=== PATIENT | female | born 1965 | race Caucasian/White ===

== ENCOUNTER 2017-01-04 23:49 | Emergency (ER) | payer OTHER ==
[~2017-01-04] VITALS: Ht 160 cm; Wt 91.7 kg
[2017-01-05 00:33] LABS: HEMATOCRIT 43.8 % (36.0-46.0); MCH 32.8 PG (29.0-34.0); MCHC 35.6 G/DL (30.0-36.0); PLATELET COUNT 265 K/uL (156-360); RBC DIS.WIDTH-CV 12.1 % (11.8-14.6); RBC DIS.WIDTH-SD 40.8 % (39-53); RED BLOOD COUNT 4.76 M/uL (3.80-5.20); WHITE BLOOD COUNT 16.9 K/uL (4.1-10.2)
[2017-01-05 00:37] LABS: CHLORIDE 103 mEq/L (99-109); POTASSIUM 3.6 mEq/L (3.7-5.4); SODIUM 136 mEq/L (136-147)
[2017-01-05 00:40] LABS: GLUCOSE 112 mg/dL (70-99)
[2017-01-05 00:41] LABS: ANION GAP 9 MEQ/L (2-14)
[2017-01-05 00:42] LABS: TOTAL BILIRUBIN 1.1 mg/dL (0.0-1.0)
[2017-01-05 00:43] LABS: ALKALINE PHOSPHATASE 76 IU/L (3-129); GFR ESTIMATE (CALCULATED) 51 mL/min/
[2017-01-05 00:44] LABS: UREA NITROGEN (BUN) 12 mg/dL (9-23)
[2017-01-05 00:52] LABS: QUANTITATIVE HCG < 4.0 MIU/ML
[2017-01-05 01:02] LABS: ADD MIUA? YES; BILIRUBIN NEGATIVE; BLOOD MODERATE; COLOR YELLOW ((YELLOW)); GLUCOSE (STRIP) NEGATIVE; KETONES 5; LEUKOCYTES TRACE; NITRITE NEGATIVE; PROTEIN (STRIP) NEGATIVE; SPECIFIC GRAVITY 1.015 (1.000-1.030); UROBILINOGEN 0.2 MG/DL (0.2-1.0)
[2017-01-05 01:12] LABS: BACTERIA NONE SEEN /HPF; EPITHELIAL CELLS RARE /HPF; HYALINE CASTS 0-5 /LPF; MUCUS TRACE /LPF; RED BLOOD CELLS 15-20 /HPF (0-5); UCUL ADDED? NO; WHITE BLOOD CELLS 15-20 /HPF (0-5)
[2017-01-05] MEDS ORDERED: TORADOL10 MG PO (01:51)
[2017-01-05] MEDS ORDERED: NORCO 5/3251 TABLET PO (01:51)
[2017-01-05] MEDS ORDERED: ZOFRAN4 MG PO (01:51)
[2017-01-05 02:17] VITALS: BP 131/78
== END 2017-01-05 02:19 | disposition home or self-care (01) ==
LOC: EME 23:49
DX: N20.1 Calculus of ureter (principal); I10 Essential (primary) hypertension
CPT/HCPCS: 74176; 80053; 81003; 84702; 85027; 99281; 99285; J1885; J2405; J7030